=== PATIENT | male | born 1940 | race Caucasian/White ===

== ENCOUNTER 2019-12-02 14:04 | Outpatient (CLI) | payer MEDICARE, OTHER, SELFPAY ==
--- NOTE | 2019-12-02 | XR_ITS ---
WS: [id number] Pelvis, AP and frog-leg views of the hips, 12/02/2019 Clinical Data: PELVIC PAIN IN MALE Comparison: AP pelvis, 08/22/2018. Findings: No fractures or dislocations are seen. The SI joints and pubic symphysis are intact. The soft tissues are not remarkable. Minimal calcification in the wall of the abdominal aorta and the proximal iliac arteries is seen. XR/XR pelvis 1-2V* [id number] Impression: Negative for fracture.
== END 2019-12-02 14:05 | disposition home or self-care (01) ==
LOC: RADOUTREAD 14:09
PROVIDERS: Family Provider Internal Medicine; Visit Provider Internal Medicine
DX: R10.2 Pelvic and perineal pain (principal)

== ENCOUNTER 2019-12-16 10:16 | Outpatient (CLI) | payer MEDICARE, OTHER, SELFPAY | END 2019-12-16 10:17 | disposition home or self-care (01) | LOC: ONCMED 10:20 | PROVIDERS: Family Provider Internal Medicine; PCP Internal Medicine; Visit Provider Internal Medicine Hematology & Oncology | DX: Z45.2 Encounter for adjustment and management of vascular access device (principal) | CPT/HCPCS: 96523 ==

== ENCOUNTER 2020-01-13 10:15 | Outpatient (CLI) | payer MEDICARE, OTHER, SELFPAY | END 2020-01-13 10:16 | disposition home or self-care (01) | LOC: ONCMED 10:17 | PROVIDERS: Family Provider Internal Medicine; PCP Internal Medicine; Visit Provider Nurse Practitioner | DX: Z45.2 Encounter for adjustment and management of vascular access device (principal) | CPT/HCPCS: 96523 ==

== ENCOUNTER 2020-02-23 14:48 | Outpatient (CLI) | payer MEDICARE, OTHER, SELFPAY | END 2020-02-23 14:49 | disposition home or self-care (01) | LOC: ONCMED 14:51 | PROVIDERS: Family Provider Internal Medicine; PCP Internal Medicine; Visit Provider Internal Medicine Hematology & Oncology | DX: Z45.2 Encounter for adjustment and management of vascular access device (principal) | CPT/HCPCS: 96523 ==

== ENCOUNTER 2020-03-12 11:11 | Outpatient (CLI) | payer MEDICARE, OTHER, SELFPAY ==
--- NOTE | 2020-03-12 | CT_ITS ---
NOTE: Report was unsigned for reason: Order was edited. Original Signature date and time was: 03/12/20 1592 WS: [id number] CT ABDOMEN PELVIS TECHNIQUE: Contrast-enhanced CT of the abdomen and pelvis with coronal and sagittal reformatted images. CLINICAL INFORMATION: STOMACH PAIN COMPARISON: CT October 01, 2019 DLP: 1100.[address] scans at [facility] use at least one of these dose optimization techniques: automated exposure control; mA and/or kV adjustment per patient size (includes targeted exams where dose is matched to clinical indication); or iterative reconstruction. FINDINGS: Liver is normal. Normal portal vein and splenic vein. Cholelithiasis. No significant gallbladder wall thickening or pericholecystic fluid. Small esophageal hiatal hernia. Mild thickening left adrenal gland is unchanged. Normal right adrenal gland. Normal renal parenchymal enhancement. Stable upper pole right renal cyst measuring 6.6 cm. Lung bases are well aerated. Subsegmental atelectasis right lung base. Fatty atrophy of the pancreas. Normal caliber abdominal aorta. Mild aortic calcification. Dense iliac calcification. Incidental fat-containing inguinal hernia. Sigmoid diverticulosis. No evidence of acute diverticulitis. No evidence of small or large bowel obstruction. Calcified enlarged prostate measuring 3.6 x 3.5 CM. Vertebroplasty changes at L1. Chronic compression at L1. Vacuum disc phenomenon L4-L5 and L5-S1. [facility] CT/CT abdomen pelvis w con* [id number] IMPRESSION: 1. Numerous gallstones in the gallbladder unchanged in appearance. No perichol ecystic fluid or gallbladder wall thickening. Recommend further evaluation with ultrasound. 2. No intrahepatic biliary ductal dilatation. Normal hepatic parenchymal enhan cement. 3. No hydronephrosis. Both kidneys are normal in appearance. 4. Right renal cyst measuring 6.6 cm is unchanged. 5. Sigmoid diverticulosis. No evidence of acute diverticulitis. 6. Calcified enlarged prostate measuring 3.5 x 3.6 CM. Recommend correlation P SA. 7. Chronic compression of the L1 vertebral body with vertebroplasty changes.
[2020-03-12 12:26] LABS: Blood Urea Nitrogen 17 mg/dL (8-23)
[2020-03-12] MEDS: iohexol 300 mg/mL 50 mL Btl PO (12:36)
[2020-03-12] MEDS: iohexol 300 mg/mL 100 mL Btl IV (12:46)
== END 2020-03-12 11:12 | disposition home or self-care (01) ==
PROVIDERS: Family Provider Internal Medicine; PCP Internal Medicine; Visit Provider Radiology Radiation Oncology
DX: R10.9 Unspecified abdominal pain (principal); K80.80 Other cholelithiasis without obstruction; Q61.01 Congenital single renal cyst; K57.30 Diverticulosis of large intestine without perforation or abscess without bleeding; N40.0 Benign prostatic hyperplasia without lower urinary tract symptoms
CPT/HCPCS: 74177; 82565; 84520; Q9967

== ENCOUNTER 2020-03-24 10:15 | Outpatient (CLI) | payer MEDICARE, OTHER, SELFPAY ==
--- NOTE | 2020-03-24 10:25 | XR_ITS ---
WS: [id number] CHEST 2 VIEWS HISTORY: Chronic lung disease. COMPARISON: 10/08/2019. Port-A-Cath present with tip in the distal SVC. Lungs: Mildly hyperinflated lungs with granulomata. No pneumonia. Normal vascularity. Cardiac size: Normal. Mediastinum/Aorta: Mild atherosclerosis aorta. Mild atherosclerosis aorta. Bones: Normal. XR/XR chest 2V* [id number] IMPRESSION: 1. Chronic emphysema and prior granulomatous disease. 2. No pneumonia. 3. Partially calcified aorta.
[2020-03-24 11:16] LABS: Basophils % 0.4 %; Eosinophils # 0.1 10^3/uL (0.0-0.8); Eosinophils % 0.7 %; Hematocrit 33.4 % (42.0-52.0); Hemoglobin 11.3 g/dL (11.7-16.6); Lymphocytes # 0.9 10^3/uL (0.8-4.8); Lymphocytes % 13.4 %; Mean Corpuscular HGB Conc 33.8 g/dL (30.0-36.0); Mean Corpuscular Hemoglobin 33.6 pg (28.0-34.0); Mean Corpuscular Volume 99.4 fL (80-94); Mean Platelet Volume 8.9 fL (7.4-10.4); Monocytes # 0.8 10^3/uL (0.2-0.9); Monocytes % 10.7 %; Neutrophils # 5.2 10^3/uL (1.8-7.7); Neutrophils % 74.5 %; Nucleated Red Blood Cells % 0 %; Platelet Count 215 10^3/cmm (130-400); Red Blood Count 3.36 10^6/uL (4.1-5.3); Red Cell Distribution Width 13.7 % (12.1-15.1)
[2020-03-24 11:31] LABS: Alanine Aminotransferase 18 U/L (0-41); Albumin Level 4.1 g/dL (3.5-5.2); Alkaline Phosphatase 61 IU/L (40-130); Anion Gap 16.1 (5-19); Aspartate Amino Transferase 22 U/L (0-40); Blood Urea Nitrogen 22 mg/dL (8-23); Calcium 9.4 mg/dL (8.5-10.5); Carbon Dioxide 24 mmol/L (22-29); Chloride 99 mmol/L (98-107); Globulin 3.6 g/dL (1.3-4.6); Glucose 112 mg/dL (65-115); Osmolality Calculated 277 mOsm/kg (285-295); Potassium 4.1 mmol/L (3.5-5.1); Sodium 135 mmol/L (136-145); Total Bilirubin 0.2 mg/dL (0.15-1.2); Total Protein 7.7 g/dL (6.6-8.7)
== END 2020-03-24 10:16 | disposition home or self-care (01) ==
PROVIDERS: Family Provider Internal Medicine; PCP Internal Medicine; Visit Provider Urology
DX: J98.4 Other disorders of lung (principal); J43.9 Emphysema, unspecified; I70.0 Atherosclerosis of aorta
CPT/HCPCS: 71046; 80053; 85025

== ENCOUNTER 2020-03-24 10:51 | Outpatient (CLI) | payer MEDICARE, OTHER, SELFPAY | END 2020-03-24 10:52 | disposition home or self-care (01) | PROVIDERS: Family Provider Internal Medicine; PCP Internal Medicine; Visit Provider Internal Medicine Medical Oncology | DX: C67.9 Malignant neoplasm of bladder, unspecified (principal) | CPT/HCPCS: 36591; 81001 ==

== ENCOUNTER 2020-04-11 12:12 | Emergency (ER) | payer MEDICARE, OTHER, SELFPAY ==
[2020-04-11] VITALS (11 sets, daily range): BP systolic 118–171; BP diastolic 55–85; PULSE 64–86; RESP 16–20; TEMP 36.8; O2SAT 93–100; BMI 22.4
--- NOTE | 2020-04-11 12:21 | XRR_ITS ---
PROCEDURE INFORMATION: Exam: XR Chest, 1 View Exam date and time: 04/11/2020 12:25 PM Age: 79 years old Clinical indication: Other: Confusion; Prior surgery; Surgery date: 6+ months; Surgery type: Port; Additional info: Sepsis TECHNIQUE: Imaging protocol: XR of the chest Views: Frontal portable upright view of the chest. COMPARISON: CR XR chest 2V* [id number] 03/24/2020 10:29 AM FINDINGS: Lungs: The lungs are clear bilaterally. The pulmonary vasculature is normal. Pleural space: No pleural effusion. No pneumothorax. Heart/Mediastinum: The heart is normal in size and contour. Mediastinum: Stable. Vasculature: The right internal jugular venous portacatheter tip is in the lower SVC. Mild aortic arch atherosclerotic calcification without ectasia. Bones/joints: Stable. Soft tissues: A skin fold projects over the lateral right chest. XR/XR chest 1V portable [id number] IMPRESSION: No acute cardiopulmonary abnormality identified.
--- NOTE | 2020-04-11 12:22 | ECG_ITS ---
Measurements Intervals [place] Rate: 73 P: 75 CA: 157 QRS: 66 QRSD: 76 T: 73 QT: 367 QTc: 407 SINUS RHYTHM Compared to ECG 10/08/2019 13:42:49 No significant changes Electronically Signed On 04-12-2020 19:58:50 CDT by Zohreh Pearson M.D. [id number]
--- NOTE | 2020-04-11 12:23 | CTR_ITS ---
PROCEDURE INFORMATION: Exam: CT Head Without Contrast Exam date and time: 04/11/2020 12:35 PM Age: 79 years old Clinical indication: Other: Confusion; Additional info: altered mental status TECHNIQUE: Imaging protocol: Computed tomography of the head without contrast. Radiation optimization: All CT scans at this facility use at least one of these dose optimization techniques: automated exposure control; mA and/or kV adjustment per patient size (includes targeted exams where dose is matched to clinical indication); or iterative reconstruction. 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 Moderate hypoattenuating foci are noted in the central cerebral, posterior superior periatrial and anterior lateral ventricular periventricular white matter bilaterally. No intracranial hemorrhage. No acute cortical infarction identified. Ventricles: Prominence of the ventricular system and subarachnoid spaces is consistent with the patient's age of 79 years. Bones/joints: Destruction of the inferolateral left frontal sinus wall/medial orbital roof (series 601, image 38). 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 Mastoid air cells: Visualized mastoid air cells are well aerated. Auditory system: Widening and probable inferior dehiscence of the left cribriform plate (series 601, images 34-37). Orbits: Left ocular proptosis. Soft tissues: Unremarkable. Vasculature: Atherosclerotic calcifications are present involving the carotid artery siphons and vertebral arteries bilaterally. CT/CT head wo con* [id number] IMPRESSION: 1. Left sinonasal mass with paranasal sinus, left orbital and contralateral extension. 2. 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 Intracranial invasion is suspected, recommend MRI without with IV contrast. 3. 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 4. Age appropriate supratentorial and infratentorial atrophy. 5. Moderate chronic white matter microvascular ischemic disease. Radiation Dose CTDIVOL = (mGy): DLP = 812.37 (mGy-cm)
--- NOTE | 2020-04-11 12:26 | ED_ITS ---
HPI - Altered Mental Status General: Chief Complaint: Altered Mental Status Stated Complaint: possible stroke yesterday Time Seen by Provider: 04/11/20 12:21 History of Present Illness: HPI narrative: Patient was diagnosed with urinary tract infection 8 days ago was placed on Macrobid. Patients don't daughter states that his mental status has been decreasing for the past few days. She states he seems very confused and cannot do most of the things that he is usually able to do. She states that just 2 days ago he was able to drive himself around town without any problem whatsoever. She states that last night he did not understand how to go to the bathroom or what toilet paper was used for. Daughter states this patient was unable to follow even the simplest of commands. Patient is awake and alert and appears to be in no significant acute distress. 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 Other diseases of bronchus, not elsewhere classified Polyp of colon Spondylosis without myelopathy or radiculopathy, lumbosacral region Surgical History H/O hand surgery H/O kyphoplasty H/O nasal polypectomy H/O oral surgery H/O removal of testicle H/O vasectomy History of appendectomy History of bladder surgery History of carpal tunnel surgery Hx of cataract surgery Family History Father CHF (congestive heart failure) Mother CAD (coronary artery disease) Social History Smoking and tobacco status: current every day smoker cigarettes Packs smoked per day: 1 Years cigarettes smoked: 60 Alcohol intake: never Lives independently: Yes Household members: none Marital status: / Current occupational status: retired History of recent travel: No Current gender identity: Male Physical Exam Const: COMMON NORMALS: no acute distress and alert EXAM LIMITATIONS: altered mental status GENERAL APPEARANCE: cooperative, comfortable and well developed ORIENTATION/CONSCIOUSNESS: Yes oriented to person and Yes oriented to place HENMT: COMMON NORMALS: normocephalic and atraumatic HEAD & SCALP: normocephalic and atraumatic Neck/C-Spine: COMMON NORMALS: full ROM, no lymphadenopathy, no meningeal signs and no JVD Resp: COMMON NORMALS: normal respiratory effort, No retractions, No use of accessory muscles and clear to auscultation bilaterally AUSCULTATION: clear to auscultation bilaterally Cardio: COMMON NORMALS: no JVD, regular rate and regular rhythm RATE: regular rate RHYTHM: regular rhythm GI: COMMON NORMALS: Normal to inspection, nondistended, normoactive bowel sounds present Extremity: COMMON NORMALS: normal to inspection, full ROM and no pedal edema Neuro: SENSORIUM/ORIENTATION: Yes alert, Yes oriented to person and Yes oriented to place MENINGEAL SIGNS: Yes no meningeal signs GAIT: Yes Unable to assess gait Course Vital Signs: Vital signs: Vital Signs Temperature 98.3 F 04/11/20 12:23 Pulse Rate 65 04/11/20 14:54 Respiratory Rate 17 04/11/20 14:54 Blood Pressure 171/66 04/11/20 14:54 Pulse Oximetry 96 04/11/20 14:43 MDM - Altered Mental Status Lab Data: Labs: Lab Results 04/11/20 04/11/20 04/11/20 Range/Units 12:27 12:27 12:27 WBC 8.2 (4.0-10.0) 10^3/ uL RBC 3.88 L (4.1-5.3) 10^6/u L Hgb 12.7 (11.7-16.6) g/dL Hct 37.9 L (42.0-52.0) % MCV 97.7 H (80-94) fL MCH 32.7 (28.0-34.0) pg MCHC 33.5 (30.0-36.0) g/dL RDW 13.3 (12.1-15.1) % Plt Count 250 (130-400) 10^3/c mm MPV 9.0 (7.4-10.4) fL Neut % (Auto) 74.4 % Lymph % (Auto) 12.5 % [place] % (Auto) 11.1 % Eos % (Auto) 1.0 % Baso % (Auto) 0.5 % Neut # (Auto) 6.1 (1.8-7.7) 10^3/u L Lymph # (Auto) 1.0 (0.8-4.8) 10^3/u L [place] # (Auto) 0.9 (0.2-0.9) 10^3/u L Eos # (Auto) 0.1 (0.0-0.8) 10^3/u L Baso # (Auto) 0.0 (0.0-0.1) 10^3/u L Nucleated RBC % (a uto) 0 % Nucleated RBCs # 0.0 /100WBC Specimen Type Sample Site ABG pH (7.35-7.45) ABG pCO2 (35-45) mmHg ABG pO2 (80.0-100.0) mmH g ABG HCO3 (22-26) mmol/L ABG Base Excess (-2.0-2.0) mmol/ L Gianluca Test Hematocrit (42-52) % O2 Delivery Device Technologist Development ID Sodium 135 L (136-145) mmol/L Potassium 4.4 (3.5-5.1) mmol/L Chloride 98 (98-107) mmol/L Carbon Dioxide 24 (22-29) mmol/L Anion Gap 17.4 (5-19) BUN 18 (8-23) mg/dL Creatinine 1.0 (0.7-1.2) mg/dL Glucose 99 (65-115) mg/dL Calculated Osmolal ity 277 L (285-295) mOsm/k g Lactic Acid 1.3 (0.5-2.2) mmol/L Calcium 9.1 (8.5-10.5) mg/dL Total Bilirubin 0.4 (0.15-1.2) mg/dL AST 27 (0-40) U/L ALT 19 (0-41) U/L Alkaline Phosphata se 57 (40-130) IU/L Troponin T Baselin e (0-15) ng/mL Total Protein 7.6 (6.6-8.7) g/dL Albumin 4.4 (3.5-5.2) g/dL Globulin 3.2 (1.3-4.6) g/dL Urine Color (Yellow) Urine Appearance (CLEAR) Urine pH (5-7) Ur Specific Gravit y (1.005-1.030) Urine Protein (Negative) Urine Glucose (UA) (Normal) Urine Ketones (Negative) Urine Blood (Negative) Urine Nitrate (Negative) Urine Bilirubin (NEGATIVE) Urine Urobilinogen (Negative) mg/dL Ur Leukocyte Makenna ase (Negative) Urine RBC (0-2) /hpf Urine WBC (0-5) /hpf Ur Squamous Epith Cells (0-5) Urine Bacteria (NONE) Hyaline Casts Fine Granular Cast s /lpf Urine Mucus 04/11/20 04/11/20 04/11/20 Range/Units 12:27 12:31 13:00 WBC (4.0-10.0) 10^3/ uL RBC (4.1-5.3) 10^6/u L Hgb (11.7-16.6) g/dL Hct (42.0-52.0) % MCV (80-94) fL MCH (28.0-34.0) pg MCHC (30.0-36.0) g/dL RDW (12.1-15.1) % Plt Count (130-400) 10^3/c mm MPV (7.4-10.4) fL Neut % (Auto) % Lymph % (Auto) % [place] % (Auto) % Eos % (Auto) % Baso % (Auto) % Neut # (Auto) (1.8-7.7) 10^3/u L Lymph # (Auto) (0.8-4.8) 10^3/u L [place] # (Auto) (0.2-0.9) 10^3/u L Eos # (Auto) (0.0-0.8) 10^3/u L Baso # (Auto) (0.0-0.1) 10^3/u L Nucleated RBC % (a uto) % Nucleated RBCs # /100WBC Specimen Type Arterial Sample Site Radial, left ABG pH 7.44 (7.35-7.45) ABG pCO2 37.5 (35-45) mmHg ABG pO2 72.0 L (80.0-100.0) mmH g ABG HCO3 25.6 (22-26) mmol/L ABG Base Excess 1.5 (-2.0-2.0) mmol/ L Gianluca Test Pos Hematocrit 37.4 L (42-52) % O2 Delivery Device Room air Technologist Development ID jmn Sodium (136-145) mmol/L Potassium (3.5-5.1) mmol/L Chloride (98-107) mmol/L Carbon Dioxide (22-29) mmol/L Anion Gap (5-19) BUN (8-23) mg/dL Creatinine (0.7-1.2) mg/dL Glucose (65-115) mg/dL Calculated Osmolal ity (285-295) mOsm/k g Lactic Acid (0.5-2.2) mmol/L Calcium (8.5-10.5) mg/dL Total Bilirubin (0.15-1.2) mg/dL AST (0-40) U/L ALT (0-41) U/L Alkaline Phosphata se (40-130) IU/L Troponin T Baselin e 27 H (0-15) ng/mL Total Protein (6.6-8.7) g/dL Albumin (3.5-5.2) g/dL Globulin (1.3-4.6) g/dL Urine Color Yellow (Yellow) Urine Appearance Clear (CLEAR) Urine pH 7 (5-7) Ur Specific Gravit y 1.010 (1.005-1.030) Urine Protein 1+ H (Negative) Urine Glucose (UA) Norm (Normal) Urine Ketones Negative (Negative) Urine Blood Neg (Negative) Urine Nitrate Negative (Negative) Urine Bilirubin Neg (NEGATIVE) Urine Urobilinogen Norm (Negative) mg/dL Ur Leukocyte Makenna ase Negative (Negative) Urine RBC None (0-2) /hpf Urine WBC Rare (0-5) /hpf Ur Squamous Epith Cells 0-4 H (0-5) Urine Bacteria Trace (NONE) Hyaline Casts 15-25 H Fine Granular Cast s 0-4 H /lpf Urine Mucus 2+ Imaging Data^: CXR: My impression: small right sided pneumothorax Discharge Plan Discharge Patient Disposition: Admitted As Inpatient Clinical Impression: Acute confusion, Lesion or mass of paranasal sinuses Altered mental status Qualifiers: Altered mental status type: disorientation Qualified Code(s): R41.0 - Disorientation, unspecified Condition: Fair Discharge Orders: Transfer Out of Facility (Order); Ordered 04/11/20 Ordered By: Jean Cisneros Referrals: Pb Wilson DO [Primary Care Provider] - Coding Level of Care Code ED Chipper Operator for Chg Fwd Exam Comprehensive
[2020-04-11 12:35] LABS: Basophils % 0.5 %; Eosinophils # 0.1 10^3/uL (0.0-0.8); Hematocrit 37.9 % (42.0-52.0); Hemoglobin 12.7 g/dL (11.7-16.6); Lymphocytes % 12.5 %; Mean Corpuscular HGB Conc 33.5 g/dL (30.0-36.0); Mean Corpuscular Hemoglobin 32.7 pg (28.0-34.0); Mean Corpuscular Volume 97.7 fL (80-94); Monocytes # 0.9 10^3/uL (0.2-0.9); Monocytes % 11.1 %; Neutrophils # 6.1 10^3/uL (1.8-7.7); Neutrophils % 74.4 %; Nucleated Red Blood Cells % 0 %; Platelet Count 250 10^3/cmm (130-400); Red Blood Count 3.88 10^6/uL (4.1-5.3); Red Cell Distribution Width 13.3 % (12.1-15.1); White Blood Count 8.2 10^3/uL (4.0-10.0)
--- NOTE | 2020-04-11 12:39 | PC.NURSE ---
Pt to CT
[2020-04-11 12:43] LABS: ABG PCO2 37.5 mmHg (35-45); ABG PH Result 7.44 (7.35-7.45); Arterial Blood Gas Hematocrit 37.4 % (42-52); Base Excess ABG 1.5 mmol/L (-2.0-2.0); Blood Gas Allen Test Pos; Blood Gas Sample Site Radial, left; Blood Gas Sample Type Arterial; HCO3 ABG 25.6 mmol/L (22-26); Oxygen Device ROOM AIR
--- NOTE | 2020-04-11 12:49 | PC.NURSE ---
Pt returned from CT
[2020-04-11 12:51] LABS: Lactic Sepsis W/Reflex 1.3 mmol/L (0.5-2.2)
[2020-04-11 12:52] LABS: Troponin(5th) Baseline 27 ng/mL (0-15)
[2020-04-11] MEDS: sodium chloride 0.9% 1,000 ML 999 ML IV (12:54)
[2020-04-11 13:24] LABS: Add Urine Microscopic? YES; Bilirubin Urine Neg (NEGATIVE); Blood Urine Neg (Negative); Glucose Urine UA Norm (Normal); Ketones Urine Negative (Negative); Leukocyte Esterase Urine Negative (Negative); Nitrate Urine Negative (Negative); Protein Urine 1+ (Negative); Urine Appearance Clear (CLEAR); Urine Color Yellow (Yellow); Urobilinogen Urine Norm (Negative); pH Urine 7 (5-7)
[2020-04-11 13:30] LABS: Bacteria Urine TRACE; Squamous Epithelial Cell Urine 0-4 (0-5); WBC Urine RARE /hpf (0-5)
[2020-04-11 13:31] LABS: Fine Granular Casts Urine 0-4 /lpf; Hyaline Casts Urine 15-25; Mucus Urine 2+
[2020-04-11 13:32] LABS: Add Urine Culture? No
[2020-04-11 14:15] LABS: Alanine Aminotransferase 19 U/L (0-41); Albumin Level 4.4 g/dL (3.5-5.2); Alkaline Phosphatase 57 IU/L (40-130); Anion Gap 17.4 (5-19); Aspartate Amino Transferase 27 U/L (0-40); Blood Urea Nitrogen 18 mg/dL (8-23); Calcium 9.1 mg/dL (8.5-10.5); Carbon Dioxide 24 mmol/L (22-29); Chloride 98 mmol/L (98-107); Creatinine Clr Calc Pharmacy 62.6852; Globulin 3.2 g/dL (1.3-4.6); Glucose 99 mg/dL (65-115); Osmolality Calculated 277 mOsm/kg (285-295); Potassium 4.4 mmol/L (3.5-5.1); Sodium 135 mmol/L (136-145); Total Bilirubin 0.4 mg/dL (0.15-1.2); Total Protein 7.6 g/dL (6.6-8.7)
--- NOTE | 2020-04-11 14:22 | ECG_ITS ---
Measurements Intervals [place] Rate: 73 P: 75 MS: 157 QRS: 66 QRSD: 76 T: 73 QT: 367 QTc: 407 SINUS RHYTHM Compared to ECG 10/08/2019 13:42:49 No significant changes [id number]
--- NOTE | 2020-04-11 14:58 | PC.NURSE ---
Tried to call report to [place], asked to call back in 10-15 min.
[2020-04-11 15:01] LABS: Troponin 5 2HR 24.36 ng/mL (0-15)
[2020-04-11 15:08] LABS: Troponin 5 2HR Delta -2.64 ABS# (0-10)
--- NOTE | 2020-04-11 15:29 | PC.NURSE ---
Pt got confused and was found wandering at the doorway. Pt had removed his IV catheter and had urinated on himself. Pt was cleaned up, pressure dressing applied to IV site, new linens provided and new gown provided. Catheter placed aseptically. Pt PAC accessed using aseptic technique and 19g needle. Pt with daughter at bedside.
--- NOTE | 2020-04-11 15:37 | PC.NURSE ---
Attempted to call report on pt. Spoke with JIGNA Segal at [facility] and was told pt will likely need to be moved rooms d/t confusion. Will call back.
--- NOTE | 2020-04-11 17:50 | PC.NURSE ---
Pt belongings sent home with pt daughter
== END 2020-04-11 17:45 | disposition admitted as inpatient to this hospital (09) ==
PROVIDERS: Emergency Provider Family Medicine; PCP Internal Medicine
DX: R41.0 Disorientation, unspecified (principal); J34.89 Other specified disorders of nose and nasal sinuses; Z85.46 Personal history of malignant neoplasm of prostate; F17.210 Nicotine dependence, cigarettes, uncomplicated; Z85.51 Personal history of malignant neoplasm of bladder
CPT/HCPCS: 12345; 36415; 36600; 51701; 51702; 70450; 71045; 80053; 81001; 82803; 83605; 84484; 85025; 87040; 93005; 96360; 99284; 99285; J7030